=== PATIENT | male | born 1945 | race Caucasian/White ===

== ENCOUNTER 2016-09-27 05:56 | Day surgery (SDC) | payer OTHER, BC ==
[~2016-09-27 05:56] MED LIST: ASPIRIN ADULT L81 M1 PO; FISH OIL500 MG PO; GLIPIZIDE5 MG PO; GLUCOSAMINE CHONDRO1 PO; LOVASTATIN40 MG PO; METFORMIN HCL500 MG PO; PRINIVIL5 MG PO
--- NOTE | 2016-09-27 06:35 | NUR ---
PRE OP INSTRUCTIONS GIVEN AND SAFETY ISSUES DISCUSSED PT HAD QUESTIONS ANSWERED PT CONFIRMED PROCEDURE PT SIGNED CONSENT PT READING HIS MAGAZINE
--- NOTE | 2016-09-27 08:22 | Provider's Discharge Care Plan ---
Problem, Goal, Plan Problem List 1. S/P colonoscopy Goals: Screening Instructions: Follow up as needed, Take meds as directed, high fiber diet diverticulosis hand out
--- NOTE | 2016-09-27 08:22 | Provider's Discharge Care Plan ---
Problem, Goal, Plan Problem List 1. S/P colonoscopy Goals: Screening Instructions: Follow up as needed, Take meds as directed, high fiber diet diverticulosis hand out
--- NOTE | 2016-09-27 08:26 | NUR ---
PT RECEIVED TO PACU EASILY AROUSABLE AND COMFORTABLE. VSS. PT RESTING ON HIS LEFT SIDE.
--- NOTE | 2016-09-27 08:30 | NUR ---
PT AWAKE AND COMFORTABLE. DR MAIN SPOKE WITH PT REGARDING EXAM FINDINGS, QUESTIONS ANSWERED.
--- NOTE | 2016-09-27 08:47 | OPERATIVE REPORT ---
DATE OF SURGERY: 09/27/2016 SURGEON: Mary Magallon III, MD MANUFACTURING PRODUCTION MANAGER: None. PREOPERATIVE DIAGNOSIS: 1. History of colon polyps POSTOPERATIVE DIAGNOSES: 1. Sigmoid diverticulosis 2. Sleep apnea PROCEDURE PERFORMED: 1. Colonoscopy ANESTHESIA: TIVA. INDICATIONS: A 71-year-old male who 2 years ago underwent colonoscopy, rectal polyp, tubular adenoma. He is presently asymptomatic. SURGICAL FINDINGS: Normal-appearing cecum, ascending, transverse, and descending colon. The patient had extensive sigmoid diverticulosis. The rectal vault appeared grossly normal. SURGICAL TECHNIQUE: The patient was brought to the operating room and placed in the left lateral decubitus position, where he was administered TIVA and monitored closely by anesthesia. After proper anesthesia had taken effect, a digital rectal examination revealed no masses or stenosis. This was followed by the passage of a fiberoptic video flexible Olympus colonoscope which, without difficulty, negotiated to the cecum. The cecum was identified by anatomical landmarks and anterior abdominal wall ballottement. On withdrawing the scope, the aforementioned findings noted. The scope was withdrawn, retroflexed, good view of the rectal vault obtained. No other pathology identified. The scope was completely withdrawn. The patient tolerated the procedure well, although he did have signs of sleep apnea during the monitored anesthesia care. The scope was withdrawn. The patient tolerated the procedure well and was transferred to the recovery room in stable condition. There were no intraoperative or anesthetic complications.
--- NOTE | 2016-09-27 08:54 | NUR ---
PT RETURNED FROM PACU PT PASSING FLATUS NO C/O DISCOMFORT
[2016-09-27 09:25] VITALS: BP 105/84
--- NOTE | 2016-09-27 09:37 | NUR ---
PT STATED WOULD LIKE TO GO HOME PT UP IN ROOM REVIEWED DISCHARGE INSTRUCTIONS VERBAL AND WRITTEN PT EXPRESSED UNDERSTANDING
--- NOTE | 2016-09-27 09:43 | NUR ---
PT DISCHARGED AMBULATORY ACCOMPANIED BY FRIEND
== END 2016-09-27 09:44 | disposition home or self-care (01) ==
LOC: OR SRH 05:56 → SCU SRH 06:02 → OR SRH 07:30
PROVIDERS: Specialist
PROC: 0DJD8ZZ Inspection of Lower Intestinal Tract, Via Natural or Artificial Opening Endoscopic (ICD-10-PCS; principal; 2016-09-27 07:30)
DX: Z12.11 Encounter for screening for malignant neoplasm of colon (principal); Z86.010 Personal history of colon polyps; K57.30 Diverticulosis of large intestine without perforation or abscess without bleeding; G47.30 Sleep apnea, unspecified; E11.9 Type 2 diabetes mellitus without complications; Z79.84 Long term (current) use of oral hypoglycemic drugs
CPT/HCPCS: 29229; 29240; 50004; 60001; 83526

== ENCOUNTER 2017-01-03 07:44 | Outpatient (CLI) | payer OTHER, BC ==
--- NOTE | 2017-01-03 09:08 | DIAGNOSTIC IMAGING REPORT ---
PROCEDURE: US ABDOMEN VASCULAR-AAA INDICATION: AORTIC ANEURYSM TECHNIQUE: Durham scale, color Doppler and spectral ultrasound of the abdominal aorta. COMPARISON: None. FINDINGS: Maximal transverse diameter of the aorta: Proximal 1.9 cm, mid 2.3 cm and distal 1.3 cm. Right iliac artery measures 1.2 cm and left iliac artery 1.1 cm. IMPRESSION: 1. No evidence of abdominal aortic aneurysm.
== END 2017-01-03 22:40 | disposition home or self-care (01) ==
LOC: US SRH 07:44
DX: Z13.6 Encounter for screening for cardiovascular disorders (principal)